=== PATIENT | male | born 1950 | race Caucasian/White ===

== ENCOUNTER 2023-05-30 06:32 | Day surgery (SDC) | payer MEDICARE, OTHER ==
[2023-05-30] MEDS: Lactated Ringers 1,000 ML IV SCH (07:18)
[2023-05-30] MEDS ORDERED: Propofol 200 MG/20 ML SDV ONE (08:10)
[2023-05-30] MEDS ORDERED: fentaNYL 100 MCG/2 ML SDV ONE (08:10)
== END 2023-05-30 09:50 | disposition home or self-care (01) ==
LOC: JP.SDS 06:32
PROVIDERS: ATTEND Student in an Organized Health Care Education/Training Program
DX: Z12.11 Encounter for screening for malignant neoplasm of colon (principal); K57.30 Diverticulosis of large intestine without perforation or abscess without bleeding; K64.4 Residual hemorrhoidal skin tags; G47.33 Obstructive sleep apnea (adult) (pediatric); I10 Essential (primary) hypertension; E78.00 Pure hypercholesterolemia, unspecified; Z88.0 Allergy status to penicillin; Z88.1 Allergy status to other antibiotic agents; Z88.8 Allergy status to other drugs, medicaments and biological substances
CPT/HCPCS: J2704; J3010; J7120